=== PATIENT | male | born 1995 | race Caucasian/White ===

== ENCOUNTER 2018-09-15 23:12 | Emergency (ER) | payer BC ==
[2018-09-16] MEDS: IBUPROFEN 200 MG TAB PO (00:55)
[2018-09-16] MEDS: ACETAMINOPHEN 325 MG TAB PO (00:55)
[2018-09-16] MEDS: ONDANSETRON (ODT) 4 MG TAB ODT (01:30)
== END 2018-09-16 02:24 | disposition home or self-care (01) ==
LOC: FTE 09-16 02:24
DX: S06.0X0A Concussion without loss of consciousness, initial encounter (principal); F17.210 Nicotine dependence, cigarettes, uncomplicated; V49.59XA Passenger injured in collision with other motor vehicles in traffic accident, initial encounter
CPT/HCPCS: 70450; 72125; 99284-25